=== PATIENT | male | born 1960 | race Caucasian/White ===

== ENCOUNTER → 2016-12-06 | Outpatient (CLI) | payer OTHER | LOC: FIMAGING 14:08 | PROVIDERS: ATTEND Surgery | DX: M77.31 Calcaneal spur, right foot (principal) ==

== ENCOUNTER 2016-12-07 05:21 | Inpatient (IN) | payer OTHER ==
--- NOTE | 2016-12-07 05:46 | CPEKG ---
Heart Rate: 70 RR Interval: 857 P-R Interval: 172 QRSD Interval: 88 QT Interval: 440 QTC Interval: 475 P [place]: 57 QRS [place]: 16 T Wave [place]: 52 EKG Severity - BORDERLINE ECG - EKG Impression: SINUS RHYTHM EKG Impression: BORDERLINE R WAVE PROGRESSION, ANTERIOR LEADS Electronically Signed By: Franco Han 07-Dec-2016 22:06:03
[2016-12-07 05:48] LABS: % IMMATURE GRANULYOCYTES 1.2 % (0.0-1.1); ABSOLUTE IMMATURE GRANULOCYTES 0.09 10^3/uL (0.00-0.10); ADD DIFF? NO; ADD MORPH? NO; ADD SCAN? NO; ATYPICAL LYMPHOCYTE FLAG 10 (0-99); FRAGMENT RBC FLAG 0 (0-99); HEMATOCRIT 39.4 % (40.0-51.0); HEMOGLOBIN 14.7 g/dL (13.7-17.5); LEFT SHIFT FLG 0 (0-99); LIPEMIA HEMOLYSIS FLAG 90 (0-99); MEAN CELL HEMOGLOBIN 31.4 pg (27.9-34.1); MEAN CELL HEMOGLOBIN CONCENTR. 37.3 g/dL (32.4-36.7); MEAN CELL VOLUME 84.2 fL (81.5-99.8); MEAN PLATELET VOLUME 9.7 fL (8.7-11.7); PLATELET CLUMPS FLAG 0 (0-99); PLATELET COUNT 232 10^3/uL (150-400); RED BLOOD CELL COUNT 4.68 10^6/uL (4.40-6.38); RED CELL DISTRIBUTION WIDTH 11.9 % (11.5-15.2)
--- NOTE | 2016-12-07 05:59 | EDPHY ---
H & P - Personal History Current Tetanus/Diphtheria Vaccine: No - Medical/Surgical History Hx Asthma: No Hx Chronic Respiratory Disease: No Hx Diabetes: No Hx Cardiac Disease: No Hx Renal Disease: No Hx Cirrhosis: No Hx Alcoholism: No Hx HIV/AIDS: No Hx Splenectomy or Spleen Trauma: No Other PMH: HTN/IRRITABLE BOWEL/BACK PAIN. SX: LEFT KNEE, SINUSES, HERNIA - NONE RECENT. - Social History Smoking Status: Former smoker Time Seen by Provider: 12/07/16 05:29 HPI/ROS: Chief complaint: Syncope HPI: 56-year-old male had gotten up to go to the bathroom, was walking back to bed when he had a syncopal episode, falling backwards. Patient believes he struck his left upper back when he found complaining of left upper back pain. Did not have any palpitations or chest pain prior to the event. Has had episodes of syncope in the past. No recent illness. Was seen by Dr. Edmonds for debridement of a foot wound several days ago. No leg pain or swelling. No fevers or chills. No cough. No chest pain or shortness of breath. No nausea or vomiting. ROS: 10 point Review of Systems is negative except as noted in the HPI. Physical exam: Gen: Awake, Alert, No Distress HEENT: Nose: no rhinorrhea Eyes: PERRLA, EOMI Mouth: Moist mucosa Neck: Supple, no JVD Chest: nontender, lungs clear to auscultation Heart: S1, S2 normal, no murmur Abd: Soft, non-tender, no guarding Back: No midline tenderness, there is ecchymoses in his right lumbar region. He has got tenderness below his left scapula. Ext: no edema, non-tender Skin: no rash Neuro: CN II-XII intact, Sensation grossly intact, Strength 5/5 in bilateral upper and lower extremities (Franco Han) Constitutional: Initial Vital Signs Temperature (C) 35.6 C L 12/07/16 05:35 Heart Rate 72 12/07/16 05:35 Respiratory Rate 18 12/07/16 05:35 Blood Pressure 145/83 H 12/07/16 05:35 O2 Sat (%) 95 12/07/16 05:35 O2 Delivery Mode Room Air Allergies/Adverse Reactions: No Known Allergies Allergy (Verified 11/06/13 11:04) Home Medications: Medication Instructions Recorded Losartan Potassium [Cozaar 50 mg 100 mg PO DAILY 11/06/13 (*)] Atenolol [Tenormin 100 mg (*)] 100 mg PO DAILY 09/11/16 Acetaminophen [Tylenol 325mg (*)] 325 mg PO BID@09,13 12/07/16 Medical Decision Making - Diagnostics EKG Interpretation: 0544 sinus rhythm with a rate of [address] or T-wave changes. Normal intervals. (Franco Han) ED Course/Re-evaluation: Patient is very dizzy on standing. Clinically dry. Sodium is low at 122. Syncope is likely secondary to dehydratio. He is unlikely hypovolemic hyponatremia. Will continue to IV hydrate. I have discussed with Dr. Stovall, hospitalist. Will admit to her service for further care. (Franco Han) Other Provider: 8:20 a.m. I was called about an over read. The patient has a very small pneumothorax on the left side and some subcutaneous emphysema. I notified Dr. Stovall who was evaluating the patient. Also consulted Dr. Knutson who will consult. We will keep the patient as a medical admission with a trauma service consultation. (Beni Fine) - Data Points Laboratory Results: Laboratory Results 12/07/16 05:35 12/07/16 05:35 12/07/16 12/07/16 05:35 05:35 WBC 7.49 10^3/uL 10^3/uL (3.80-9.50) RBC 4.68 10^6/uL 10^6/uL (4.40-6.38) Hgb 14.7 g/dL g/dL (13.7-17.5) Hct 39.4 % L % (40.0-51.0) MCV 84.2 fL fL (81.5-99.8) MCH 31.4 pg pg (27.9-34.1) MCHC 37.3 g/dL H g/dL (32.4-36.7) RDW 11.9 % % (11.5-15.2) Plt Count 232 10^3/uL 10^3/uL (150-400) MPV 9.7 fL fL (8.7-11.7) Neut % (Auto) 64.0 % % (39.3-74.2) Lymph % (Auto) 20.7 % % (15.0-45.0) [place] % (Auto) 12.6 % % (4.5-13.0) Eos % (Auto) 1.2 % % (0.6-7.6) Baso % (Auto) 0.3 % % (0.3-1.7) Nucleat RBC Rel Count 0.0 % % (0.0-0.2) Absolute Neuts (auto) 4.80 10^3/uL 10^3/uL (1.70-6.50) Absolute Lymphs (auto) 1.55 10^3/uL 10^3/uL (1.00-3.00) Absolute Monos (auto) 0.94 10^3/uL H 10^3/uL (0.30-0.80) Absolute Eos (auto) 0.09 10^3/uL 10^3/uL (0.03-0.40) Absolute Basos (auto) 0.02 10^3/uL 10^3/uL (0.02-0.10) Absolute Nucleated RBC 0.00 10^3/uL 10^3/uL (0-0.01) Immature Gran % 1.2 % H % (0.0-1.1) Immature Gran # 0.09 10^3/uL 10^3/uL (0.00-0.10) Sodium 122 mEq/L L mEq/L (134-144) Potassium 3.7 mEq/L mEq/L (3.5-5.2) Chloride 83 mEq/L L mEq/L (97-110) Carbon Dioxide 22 mEq/l mEq/l (22-31) Anion Gap 17 mEq/L H mEq/L (8-16) BUN 7 mg/dL mg/dL (7-23) Creatinine 1.1 mg/dL mg/dL (0.7-1.3) Estimated GFR > 60 Glucose 103 mg/dL H mg/dL (70-100) Calcium 9.3 mg/dL mg/dL (8.5-10.4) Troponin I < 0.012 ng/mL ng/mL (0-0.034) Medications Given: Discontinued Medications Sodium Chloride (Ns) 1,000 mls @ 0 mls/hr IV ONCE ONE PRN Reason: Wide Open Stop: 12/07/16 06:37 Last Admin: 12/07/16 06:47 Dose: 1,000 mls Morphine Sulfate (Morphine) 4 mg IVP EDNOW ONE Stop: 12/07/16 06:50 Last Admin: 12/07/16 06:58 Dose: 4 mg Departure - Departure Disposition: [facility] Inpatient Acute Clinical Impression: Syncope, Dehydration, Hyponatremia Condition: Fair
[2016-12-07 06:06] LABS: ANION GAP 17 mEq/L (8-16); CALCIUM 9.3 mg/dL (8.5-10.4); CARBON DIOXIDE 22 mEq/l (22-31); CHLORIDE 83 mEq/L (97-110); CREATININE 1.1 mg/dL (0.7-1.3); GLOMERULAR FILTRATION RATE > 60; GLUCOSE 103 mg/dL (70-100); POTASSIUM 3.7 mEq/L (3.5-5.2); SODIUM 122 mEq/L (134-144)
[2016-12-07 06:17] LABS: TROPONIN I < 0.012 ng/mL (0-0.034)
[2016-12-07] MEDS ORDERED: NS 1,000 ML IV ONE ×2 (06:36→07:59)
[2016-12-07] MEDS ORDERED: ONDANSETRON 4 MG/2 ML VIAL IVP PRN (07:59)
[2016-12-07] MEDS ORDERED: ONDANSETRON DISINTEGRATING 4 MG TAB PO PRN (07:59)
[2016-12-07] MEDS ORDERED: ACETAMINOPHEN 325 MG TAB PO PRN (07:59)
[2016-12-07] MEDS ORDERED: NS 1,000 ML IV SCH (08:00)
--- NOTE | 2016-12-07 08:36 | HOSPPROG ---
Hospitalist Progress Note Assessment/Plan: Syncope - He is orthostatic positive in the ED. No fevers and labs not suggestive of infection or sepsis. He has a h/o renal artery stenosis with stenting in 08/2016, though it seems unlikely this would now cause change in hemodynamics. Suspect volume depletion vs over-treatment with his anti- hypertensives (atenolol and losartan), which are held. Also consider hyponatremia as contributory factor, but wouldn't expect that to cause orthostasis. He is fluid responsive to 1L NS. Will repeat bolus. Monitor on telemetry to ensure no arrhythmia. Consider echocardiogram and carotid evaluation if not improving with IVF's and holding anti-hypertensives. Initial trop negative, will repeat. He denies CP. Will also check AM cortisol to r/o adrenal insufficiency. Hyponatremia - Unclear etiology. Check urine studies. He is receiving NS. Will check a serum Na at 1200 to ensure not overcorrecting too rapidly.\ Pneumothorax - Sustained from fall. No hypoxemia. ED to notify surgery, will likely follow with serial CXR. Will give high flow O2 to see if this helps re- expand. Head injury secondary to syncope - pt has posterior head pain. Will check head CT. Hypertension - he is hypotensive and orthostatic. Hold BB and ARB. H/O renal artery stenosis - s/p renal artery stent. Apparently his BP did not improve immediately following this. Full code Dispo - observation Objective: Vital Signs Temp Pulse Resp BP Pulse Ox 36.7 C 73 16 91/58 L 95 12/07/16 07:03 12/07/16 07:03 12/07/16 07:03 12/07/16 07:03 12/07/16 07:03 ICD10 Worksheet Patient Problems: Problems Problem Status Onset Dehydration Acute Hyponatremia Acute Syncope Acute
--- NOTE | 2016-12-07 09:03 | PDGENHP ---
History and Physical - Chief Complaint syncope - History of Present Illness 56 yo male with h/o hypertension, renal artery stenosis s/p stenting in 08/2016 , and chronic back pain presents to ED after a syncopal event at home. He awoke early this am and after voiding in the bathroom, he passed out. He denies pre-syncope symptoms prior to this. No CP, SOB, palpitations, or dizziness. No fevers or cough. No abdominal pain, flank pain, dysuria, frequency or urgency. His found him down and suspects he hit the toilet on the way down. She checked his BP and his SBP was ~60. He believes he fell onto his left chest and hit his head. He c/o posterior head pain. No N/V or mental status changes. He is self splinting his left chest wall. He denies feeling ill prior to this event and has had normal po intake. In the ED, he is found to be orthostatic and received a 1L NS fluid bolus, to which he is responsive. CXR is performed and he is admitted for further evaluation. History Information - Allergies/Home Medication List Allergies/Adverse Reactions: No Known Allergies Allergy (Verified 11/06/13 11:04) Home Medications: Losartan Potassium [Cozaar 50 mg (*)] 100 mg PO DAILY 11/06/13 [Last Taken 12/06] Atenolol [Tenormin 100 mg (*)] 100 mg PO DAILY 09/11/16 [Last Taken 12/06/16] Acetaminophen [Tylenol 325mg (*)] 325 mg PO BID@09,13 12/07/16 [Last Taken 12/06 13:00] Clotrimazole/Betamethasone Dip [Clotrimazole-Betamethasone Crm] 1 adan TP BID [Last Taken Unknown] I have personally reviewed and updated: family history, medical history, social history, surgical history - Past Medical History hypertension Additional medical history: chronic back pain (takes only tylenol), h/o renal artery stenosis s/p stent 08/2016 - Surgical History Additional surgical history: Left knee surgery, renal artery stent - Family History Positive for: non-pertinent - Social History Smoking Status: Former smoker Additional social history: Lives with his independently. Review of Systems ROS: 10pt was reviewed & negative except for what was stated in HPI & below Physical Exam Temp Pulse Resp BP Pulse Ox 36.7 C 73 16 91/58 L 95 12/07/16 07:03 12/07/16 07:03 12/07/16 07:03 12/07/16 07:03 12/07/16 07:03 Constitutional: no apparent distress Eyes: PERRL Ears, Nose, Mouth, Throat: moist mucous membranes Cardiovascular: regular rate and rhythym, no murmur, rub, or gallop Respiratory: no respiratory distress, clear to auscultation, other (+left chest wall tenderness over anterior ribs 5-7) Gastrointestinal: normoactive bowel sounds, soft, non-tender abdomen Skin: warm Musculoskeletal: full muscle strength Neurologic: AAOx3 Psychiatric: interacting appropriately Lab Data & Imaging Review 12/07/16 05:35 12/07/16 05:35 WBC 7.49 10^3/uL (3.80-9.50) 12/07/16 05:35 RBC 4.68 10^6/uL (4.40-6.38) 12/07/16 05:35 Hgb 14.7 g/dL (13.7-17.5) 12/07/16 05:35 Hct 39.4 % (40.0-51.0) L 12/07/16 05:35 MCV 84.2 fL (81.5-99.8) 12/07/16 05:35 MCH 31.4 pg (27.9-34.1) 12/07/16 05:35 MCHC 37.3 g/dL (32.4-36.7) H 12/07/16 05:35 RDW 11.9 % (11.5-15.2) 12/07/16 05:35 Plt Count 232 10^3/uL (150-400) 12/07/16 05:35 MPV 9.7 fL (8.7-11.7) 12/07/16 05:35 Neut % (Auto) 64.0 % (39.3-74.2) 12/07/16 05:35 Lymph % (Auto) 20.7 % (15.0-45.0) 12/07/16 05:35 [place] % (Auto) 12.6 % (4.5-13.0) 12/07/16 05:35 Eos % (Auto) 1.2 % (0.6-7.6) 12/07/16 05:35 Baso % (Auto) 0.3 % (0.3-1.7) 12/07/16 05:35 Nucleat RBC Rel Count 0.0 % (0.0-0.2) 12/07/16 05:35 Absolute Neuts (auto) 4.80 10^3/uL (1.70-6.50) 12/07/16 05:35 Absolute Lymphs (auto) 1.55 10^3/uL (1.00-3.00) 12/07/16 05:35 Absolute Monos (auto) 0.94 10^3/uL (0.30-0.80) H 12/07/16 05:35 Absolute Eos (auto) 0.09 10^3/uL (0.03-0.40) 12/07/16 05:35 Absolute Basos (auto) 0.02 10^3/uL (0.02-0.10) 12/07/16 05:35 Absolute Nucleated RBC 0.00 10^3/uL (0-0.01) 12/07/16 05:35 Immature Gran % 1.2 % (0.0-1.1) H 12/07/16 05:35 Immature Gran # 0.09 10^3/uL (0.00-0.10) 12/07/16 05:35 Sodium 122 mEq/L (134-144) L 12/07/16 05:35 Potassium 3.7 mEq/L (3.5-5.2) 12/07/16 05:35 Chloride 83 mEq/L (97-110) L 12/07/16 05:35 Carbon Dioxide 22 mEq/l (22-31) 12/07/16 05:35 Anion Gap 17 mEq/L (8-16) H 12/07/16 05:35 BUN 7 mg/dL (7-23) 12/07/16 05:35 Creatinine 1.1 mg/dL (0.7-1.3) 12/07/16 05:35 Estimated GFR > 60 12/07/16 05:35 Glucose 103 mg/dL (70-100) H 12/07/16 05:35 Calcium 9.3 mg/dL (8.5-10.4) 12/07/16 05:35 Troponin I < 0.012 ng/mL (0-0.034) 12/07/16 05:35 Assessment & Plan Assessment: Syncope - He is orthostatic positive in the ED. No fevers and labs not suggestive of infection or sepsis. He has a h/o renal artery stenosis with stenting in 08/2016, though it seems unlikely this would now cause change in hemodynamics. Suspect volume depletion vs over-treatment with his anti- hypertensives (atenolol and losartan), which are held. Also consider hyponatremia as contributory factor, but wouldn't expect that to cause orthostasis. He is fluid responsive to 1L NS. Will repeat bolus. Monitor on telemetry to ensure no arrhythmia. Consider echocardiogram and carotid evaluation if not improving with IVF's and holding anti-hypertensives. Initial trop negative, will repeat. He denies CP. Will also check AM cortisol to r/o adrenal insufficiency. Hyponatremia - Suspect hypovolemic. Check urine studies. He is receiving NS. Will repeat serum Na at 1100 to ensure not overcorrecting too rapidly. Pneumothorax - Sustained from fall. No hypoxemia. ED to notify surgery, will likely follow with serial CXR. Will give high flow O2 to see if this helps re- expand. Suspected rib fracture - pain control, PT/OT. Head injury secondary to syncope - pt has posterior head pain. Will check head CT. Hypertension - he is hypotensive and orthostatic. Hold BB and ARB. H/O renal artery stenosis - s/p renal artery stent. Apparently his BP did not improve immediately following this. Full code Dispo - observation
[2016-12-07] MEDS ORDERED: oxyCODONE IR 5 MG TAB PO PRN (09:08)
[2016-12-07] MEDS ORDERED: HYDROmorphONE/DILAUDID 1 MG/ML SYR IVP PRN (09:16)
[2016-12-07] MEDS ORDERED: OXYCODONE/APAP 5/325 TAB ONE (09:22)
[2016-12-07] MEDS: OXYCODONE/APAP 5/325 TAB PO PRN ×3 (09:26→23:50)
[2016-12-07 11:34] LABS: SODIUM 118 mEq/L (134-144)
[2016-12-07 11:47] LABS: TROPONIN I < 0.012 ng/mL (0-0.034)
[2016-12-07] MEDS ORDERED: CYCLOBENZAPRINE 10 MG TAB ONE (12:32)
[2016-12-07] MEDS: SODIUM CL 23.4% 308 MEQ in WATER FOR INJECTION,STERILE 1,000 ML IV SCH (12:40)
[2016-12-07] MEDS: CYCLOBENZAPRINE 10 MG TAB PO SCH ×2 (12:40→21:46)
[2016-12-07] MEDS: IBUPROFEN 600 MG TAB PO PRN (12:40)
--- NOTE | 2016-12-07 14:02 | GCON ---
[f rep st] CONSULTATION DATE OF CONSULTATION: 12/07/2016 CHIEF COMPLAINT: Syncopal episode with fall. HISTORY OF PRESENT ILLNESS: This is a 56-year-old male, who early this morning sustained a fall secondary to a syncopal episode. Per he and his 's report , the patient was ambulating toward the bathroom. The initially heard a small commotion followed by a larger one, and found the patient lying in the bathroom. The patient was amnestic to the event, but at any rate, it appears that the patient remembers feeling lightheaded and passing out. He did fall down, struck his head and had about 20 seconds of loss of consciousness. He was diaphoretic at that time as well. His is a nurse here at the [facility] and she took his blood pressure at home and it was unusually low as the patient usually runs high. She then brought him here by private vehicle. In the emergency department, he was evaluated. He was alert and oriented. His GCS was 14-15. He was a little bit confused but otherwise redirectable. He was protecting his airway. He was breathing appropriately and he had adequate circulation. He was subsequently evaluated by the emergency department staff. As part of the workup, the patient received a noncontrast CT scan of the head which showed no acute intracranial injury without bleed. He also had a chest x-ray which showed a [id number] left- sided pneumothorax with an associated likely lateral 5th rib fracture without any other concerning findings. On my evaluation, the patient is alert, oriented , complaining of head pain and right lower back pain, with the most severe being left-sided chest pain, worse with palpation and breaths. The pain at its worst intensity is 8-9 out of 10 without radiation and is described as sharp. The patient denies having any other chills. He currently knows where he is. Denies having any other symptomatology. Denies being lightheaded at this point in time. PAST MEDICAL HISTORY: Hypertension, chronic back pain, history of renal artery stenosis. PAST SURGICAL HISTORY: Left knee arthroscopic surgery, renal artery stent, laparoscopic Lane, and left foot debridement. SOCIAL HISTORY: Former smoker. Lives with his independently. REVIEW OF SYSTEMS: A full 10-point review was performed and unless explicitly stated above is otherwise negative. CURRENT MEDICATIONS: Include losartan, atenolol, acetaminophen, clotrimazole. ALLERGIES: None. PHYSICAL EXAMINATION: VITAL SIGNS: Blood pressure 115/82, heart rate 64, and he is 94% on room air, temperature is 36.8. GENERAL: He is alert and oriented , in no acute distress. He is completely neurologically intact without any focal deficits. HEENT: Pupils are equal, round, and reactive to light and accommodation. There is no scleral icterus or nystagmus. NECK: Soft, supple, without any palpable deformities or pain in the midline C-spine. CHEST: His chest is tender to palpation on the left side without crepitus. His lungs are clear, although he has poor inspiratory effort. ABDOMEN: Soft, nondistended, nontender with scars consistent with his previous surgical history. His pelvis is stable to both AP and lateral compression. EXTREMITIES: Warm without deformity or injury and well perfused. LABS: Sodium on initial consultation was 122. This has now dropped to 118. His glucose is elevated at 103. Chest x-ray shows likely 5th lateral rib fracture with an associated pneumothorax. Followup x-ray 6 hours later shows stable pneumothorax. CT head was negative for any acute bleed and/or injury. ASSESSMENT/PLAN: A 56-year-old male status post syncopal fall with head injury and loss of consciousness. Given the unprovoked syncopal episode, the patient will be admitted to the medical service for further evaluation and treatment of his hyponatremia. I have subsequently ordered serial chest x-rays as the patient is not symptomatic from his small to moderate pneumothorax on the left. I anticipate that as it has not enlarged over the initial 6 hours that it will continue to be stable to regress and likely resolve without tube thoracostomy placement. However, I will repeat imaging later this evening to confirm that, and if the patient should become symptomatic, I have already discussed with him that he will more than likely need a chest tube thoracostomy placement to that side. We will continue to monitor. I see no other obvious signs of injury, but we will obtain a tertiary exam 24 hours after initial consultation to ensure that he has no evolving injury. /[id number]/MODL MTDD
--- NOTE | 2016-12-07 20:41 | HOSPPROG ---
Hospitalist Progress Note Assessment/Plan: The patient this afternoon feels better overall with less pain. However he remains somewhat encephalopathic. No seizures or vomitng He and tell me he has had no emesis, diarrhea, poyluria or polydypsia, diuretic or laxative use. He has had a decrease in Na despite IV saline. Appears near euvolemic. (I am unable at this point to get a great feel for what his volume status was before getting saline infusions in the ER. I have started 1.8% hypertonic saline. Will continue to follow his Na closely. I have also ordered serum osmols, but I doubt he has a pseudohyponatremia or excess of some nonmeasured osmole. His urine studies most consistant with siadh with simultaneous low Na stores. Unless it is all acute and resulting from his head injury, I do not as of yet see a cause for siadh. He is not on antidepressant or narcotic or other medication that would cause low Na. Objective: Vital Signs Temp Pulse Resp BP Pulse Ox 37.0 C 95 16 118/69 97 12/07/16 19:19 12/07/16 19:19 12/07/16 19:19 12/07/16 19:19 12/07/16 19:19 Laboratory Results 12/07/16 17:40 12/06/16 12/07/16 12/08/16 06:59 06:59 06:59 Intake Total 3317 Balance 3317 ICD10 Worksheet Patient Problems: Problems Problem Status Onset Dehydration Acute Hyponatremia Acute Syncope Acute
[2016-12-07] MEDS: CLOTRIMAZOLE/BETAMET DIPROP 15 GM CRTUBE TP SCH (21:00)
[2016-12-07 21:42] LABS: ANION GAP 8 mEq/L (8-16); CALCIUM 8.5 mg/dL (8.5-10.4); CARBON DIOXIDE 24 mEq/l (22-31); CHLORIDE 90 mEq/L (97-110); CREATININE 1.1 mg/dL (0.7-1.3); GLOMERULAR FILTRATION RATE > 60; GLUCOSE 101 mg/dL (70-100); POTASSIUM 4.2 mEq/L (3.5-5.2); SODIUM 122 mEq/L (134-144)
[2016-12-08] MEDS: IBUPROFEN 600 MG TAB PO PRN ×3 (03:20→17:05)
[2016-12-08] MEDS: SODIUM CL 23.4% 308 MEQ in WATER FOR INJECTION,STERILE 1,000 ML IV SCH (05:00)
[2016-12-08] MEDS: OXYCODONE/APAP 5/325 TAB PO PRN ×4 (05:02→22:24)
[2016-12-08 05:51] LABS: ANION GAP 7 mEq/L (8-16); CALCIUM 8.8 mg/dL (8.5-10.4); CARBON DIOXIDE 24 mEq/l (22-31); CHLORIDE 96 mEq/L (97-110); CREATININE 1.1 mg/dL (0.7-1.3); GLOMERULAR FILTRATION RATE > 60; GLUCOSE 106 mg/dL (70-100); POTASSIUM 4.4 mEq/L (3.5-5.2); SODIUM 127 mEq/L (134-144)
[2016-12-08] MEDS: ATENOLOL 50 MG TAB PO SCH (09:35)
[2016-12-08] MEDS: CYCLOBENZAPRINE 10 MG TAB PO SCH ×3 (09:35→21:52)
[2016-12-08] MEDS: CLOTRIMAZOLE/BETAMET DIPROP 15 GM CRTUBE TP SCH ×2 (09:36→20:22)
[2016-12-08 11:27] LABS: ANION GAP 8 mEq/L (8-16); CALCIUM 8.8 mg/dL (8.5-10.4); CARBON DIOXIDE 20 mEq/l (22-31); CHLORIDE 101 mEq/L (97-110); CREATININE 1.2 mg/dL (0.7-1.3); GLOMERULAR FILTRATION RATE > 60; GLUCOSE 106 mg/dL (70-100); POTASSIUM 4.5 mEq/L (3.5-5.2); SODIUM 129 mEq/L (134-144)
--- NOTE | 2016-12-08 11:45 | SOAPPROG ---
SOAP Progress Note Assessment/Plan: Assessment/Plan: 56 yo man who presented with syncope of unknown etiology Work up has revealed hyponatremia and orthostatic hypotension Chest pain showed left anterior non displaced rib fx and 30% ptx - no hypoxia ( 97% sats room air) and no increase repiratory effort Conservative treatment has shown interval decrease in the size to 15-20% RRR CTA Abd soft nt/nd No edema Non focal neuro exam CXR reviewed. pneumothorax resolving spontaneously Repeat CXR in am if stable of resolving no intervention recommended oxygen 2L NC to allow faster resolution of pxt 12/08/16 11:41 Objective: Vital Signs Temp Pulse Resp BP Pulse Ox 37.0 C 75 13 113/59 L 97 12/08/16 07:45 12/08/16 07:45 12/08/16 07:45 12/08/16 07:45 12/08/16 07:45 Laboratory Results 12/08/16 10:37 12/07/16 12/08/16 12/09/16 05:59 05:59 05:59 Intake Total 4872 Output Total 1125 Balance 3747 ICD10 Worksheet Patient Problems: Problems Problem Status Onset Dehydration Acute Hyponatremia Acute Syncope Acute
--- NOTE | 2016-12-08 12:04 | HOSPPROG ---
Hospitalist Progress Note Assessment/Plan: DIAGNOSES: # Syncope, most likely vagal but some question of potential for seizure -Patient did have a metabolic acidosis at the time of admission # Hyponatremia, near euvolemic -Lab so far consistent with SIADH, reason for SIADH unknown # Left pneumothorax with rib fractures -So far pneumothorax improving spontaneously, chest tube not currently indicated # Chronic hypertension ( not on any diuretics ) # History of renal artery stenosis status post recent angioplasty; blood pressure is not improved since his procedure # chronic alcohol abuse with 6-8 beers daily PLANS: - at this point will liberalize his fluid intake somewhat and have stopped his hypertonic saline -Continue follow his sodium levels closely -EEG pending -Increase activity -Continue follow serial chest x-rays with left pneumothorax -will add thiamine and watch closely for any potential signs of withdrawal SUBJECTIVE: He has some left chest soreness from his rib fractures, minimal headache, no other discomforts No nausea Eating okay Less disoriented than last night OBJECTIVE Vitals reviewed: blood pressure is better today so far, otherwise normal [employer], my review: all sinus rhythm so far Exam: alert oriented skin warm dry color ok resps not labored lungs clear BSs heart regular abd soft nondistended nontender, bowel sounds present limbs warm, no edema iv site ok Objective: Vital Signs Temp Pulse Resp BP Pulse Ox 36.8 C 64 12 113/71 99 12/08/16 11:54 12/08/16 11:54 12/08/16 11:54 12/08/16 11:54 12/08/16 11:54 Laboratory Results 12/08/16 10:37 12/07/16 12/08/16 12/09/16 06:59 06:59 06:59 Intake Total 4872 Output Total 1125 Balance 3747 ICD10 Worksheet Patient Problems: Problems Problem Status Onset Dehydration Acute Hyponatremia Acute Syncope Acute
--- NOTE | 2016-12-08 13:11 | GCON ---
[f rep st] CONSULTATION INTENSIVE CONSULTATION REASON FOR ADMISSION: Hyponatremia, syncopal episode. HISTORY OF PRESENT ILLNESS: The patient is a very pleasant 56-year-old white male with a past medic al history including hypertension, renal artery stenosis with stenting, chronic back pain. Apparent ly on the day of admission, he voided early in the morning and then lost consciousness. Apparently this occurred fairly suddenly. He was seen in the emergency room and given aggressive hydration. Funmi verma currently complains of left chest pain from a rib fracture when he fell. Currently, he is resting comfortably. He has had vasovagal episodes in the past causing loss of consciousness but none rece ntly. PAST MEDICAL HISTORY: Again, significant for chronic back pain, renal artery stenosis status post s tenting, hypertension. ALLERGIES: No known medications. SOCIAL HISTORY: Previous smoker, none for many years. No significant alcohol use. He lives with h is and has excellent family support. PAST SURGICAL HISTORY: He has had left knee surgery and, again, a renal artery stent. PHYSICAL EXAM: VITAL SIGNS: Blood pressure is 113/71, pulse 64, respirations 12, temperature 36.8, oxygen saturation 99% on 2 L. GENERAL: He is a well-developed, well-nourished 56-year-old male wh o is resting comfortably, in no acute distress. HEENT: Eyes: STEVE. EOMI. Throat shows no erythe ma or tonsillar hypertrophy. NECK: Supple. No cervical adenopathy. HEART: Regular rate and rhyt hm without murmurs, rubs, or gallops. LUNGS: Diminished breath sounds but no wheeze. ABDOMEN: So ft, nontender. Bowel sounds are present in all 4 quadrants. EXTREMITIES: No clubbing, cyanosis, o r edema. LABORATORIES: White count 7.4, hemoglobin of 14, hematocrit 39, platelet count 232. Initial chemis tries on presentation: Sodium 122, potassium 4.2, chloride 90, CO2 24, BUN 16, creatinine 1.1, gluc ose 101. Most recent chemistries: Sodium is up to 129, potassium 4.5, chloride 101, CO2 is 20, BUN 17, creatinine 1.2, glucose 106. A chest x-ray shows a left pneumothorax, which is small. There is a lateral left rib fracture. IMPRESSION: 1. Syncopal episode, likely secondary to his hyponatremia end and hypovolemia. 2. Hyponatremia, query whether this may be SIADH. 3. Status post fall. 4. Left-sided rib fracture. 5. Left-sided pneumothorax, too small to require a chest tube at this time. RECOMMENDATIONS: 1. Agree with continued hydration. 2. Monitor sodium frequently. 3. DVT and PE prophylaxis. 4. Stress ulcer prophylaxis. 5. Frequent chest x-rays. /[id number]/MODL
[2016-12-08] MEDS ORDERED: MAGNESIUM HYDROXIDE 30 ML UDCUP PO PRN (14:58)
[2016-12-08] MEDS ORDERED: POLYETHYLENE GLYCOL 3350 17 GM PKT PO PRN (14:58)
[2016-12-08] MEDS ORDERED: BISACODYL 10 MG SUPP PR PRN (14:58)
[2016-12-08] MEDS ORDERED: LACTULOSE 20 GM/30 ML UDCUP PO PRN (14:58)
[2016-12-08 19:04] LABS: ANION GAP 10 mEq/L (8-16); CALCIUM 9.2 mg/dL (8.5-10.4); CARBON DIOXIDE 20 mEq/l (22-31); CHLORIDE 97 mEq/L (97-110); CREATININE 1.1 mg/dL (0.7-1.3); GLOMERULAR FILTRATION RATE > 60; GLUCOSE 217 mg/dL (70-100); POTASSIUM 4.3 mEq/L (3.5-5.2); SODIUM 127 mEq/L (134-144)
[2016-12-08] MEDS: THIAMINE HCL 100 MG TAB PO SCH (20:22)
[2016-12-08] MEDS: SENNOSIDES/DOCUSATE SODIUM TAB PO SCH (20:22)
[2016-12-09 00:44] LABS: ANION GAP 8 mEq/L (8-16); CALCIUM 8.9 mg/dL (8.5-10.4); CARBON DIOXIDE 22 mEq/l (22-31); CHLORIDE 100 mEq/L (97-110); GLOMERULAR FILTRATION RATE > 60; GLUCOSE 107 mg/dL (70-100); POTASSIUM 4.4 mEq/L (3.5-5.2); SODIUM 130 mEq/L (134-144)
[2016-12-09] MEDS: OXYCODONE/APAP 5/325 TAB PO PRN (04:58)
[2016-12-09 05:03] VITALS: O2SAT 98
[2016-12-09 05:58] LABS: ANION GAP 9 mEq/L (8-16); CALCIUM 9.1 mg/dL (8.5-10.4); CARBON DIOXIDE 22 mEq/l (22-31); CHLORIDE 99 mEq/L (97-110); CREATININE 0.9 mg/dL (0.7-1.3); GLOMERULAR FILTRATION RATE > 60; GLUCOSE 99 mg/dL (70-100); SODIUM 130 mEq/L (134-144)
[2016-12-09 07:59] VITALS: RESP 17; TEMP 98.8
--- NOTE | 2016-12-09 08:52 | SOAPPROG ---
SOAP Progress Note Assessment/Plan: Assessment: s/p fall ? syncope blunt chest trauma/rib fractures/ left pneumothorax Plan: check CXR/continue supplemental O2 12/09/16 08:52 Subjective: awake/resting comfortably-c/o left posterior chest pain Objective: Vital Signs Temp Pulse Resp BP Pulse Ox 37.1 C 93 17 96/79 L 98 12/09/16 07:58 12/09/16 07:58 12/09/16 07:58 12/09/16 07:58 12/09/16 07:58 Laboratory Results 12/09/16 05:21 12/08/16 12/09/16 12/10/16 05:59 05:59 05:59 Intake Total 4872 1450 Output Total 1125 1175 Balance 3747 275 Physical Exam - Physical Exam General Appearance: mild distress Respiratory: normal breath sounds, decreased breath sounds (left apex) Cardiac/Chest: regular rate, rhythm ICD10 Worksheet Patient Problems: Problems Problem Status Onset Dehydration Acute Hyponatremia Acute Syncope Acute
--- NOTE | 2016-12-09 09:30 | PDINTPN ---
Cold Roll Catcher Progress Note Assessment/Plan: Assessment: * Syncope * Hyponatremia-improved * Htn * H/O renal artery stenosis Plan: Transfer to med surg [facility] Subjective: Comfortable. Objective: Vital Signs Temp Pulse Resp BP Pulse Ox 37.1 C 93 17 96/79 L 98 12/09/16 07:58 12/09/16 07:58 12/09/16 07:58 12/09/16 07:58 12/09/16 07:58 Laboratory Results 12/09/16 05:21 12/08/16 12/09/16 12/10/16 05:59 05:59 05:59 Intake Total 4872 1450 Output Total 1125 1175 Balance 3747 275 Physical Exam - Physical Exam General Appearance: alert, no apparent distress EENT: PERRL/EOMI, normal ENT inspection, pharynx normal, TMs normal Neck: non-tender, full range of motion, supple, normal inspection Respiratory: chest non-tender, lungs clear, normal breath sounds Cardiac/Chest: normal peripheral pulses, regular rate, rhythm Peripheral Pulses: 2+: carotid (R), carotid (L), femoral (R), femoral (L), dorsalis-pedis (R), dorsalis-pedis (L) Abdomen: normal bowel sounds, non-tender, soft Male Genitalia: deferred Rectal: deferred Extremities: normal range of motion, non-tender, normal inspection, normal capillary refill Neuro/Psych: no motor/sensory deficits, alert, normal mood/affect, oriented x 3 ICD10 Worksheet Patient Problems: Problems Problem Status Onset Dehydration Acute Hyponatremia Acute Syncope Acute
[2016-12-09] MEDS: SENNOSIDES/DOCUSATE SODIUM TAB PO SCH (09:40)
[2016-12-09] MEDS: THIAMINE HCL 100 MG TAB PO SCH (09:40)
[2016-12-09] MEDS: CYCLOBENZAPRINE 10 MG TAB PO SCH (09:40)
[2016-12-09 09:41] VITALS: BP 136/65; PULSE 102
[2016-12-09] MEDS: ATENOLOL 50 MG TAB PO SCH (09:41)
[2016-12-09] MEDS: CLOTRIMAZOLE/BETAMET DIPROP 15 GM CRTUBE TP SCH (09:41)
--- NOTE | 2016-12-09 13:00 | SOAPPROG ---
Downtime Inpatient MD Late Entry SOAP Note: repeat CXR reviewed/not significantly different from yesterday's film-no hemothorax Imp: stable for discharge from surgical viewpoint discussed follow up CXR in 48 hours no return to work or sports no air travel Leilani Castro MD, FACS
--- NOTE | 2016-12-09 20:05 | GDS ---
[f rep st] DISCHARGE SUMMARY DISCHARGE DIAGNOSES: 1. Syncope of unclear etiology. Possibly due to hyponatremia versus vasovagal syncope versus less likely seizure. 2. Euvolemic hyponatremia, most likely due to water intoxication. 3. Traumatic left pneumothorax and rib fractures. 4. Chronic hypertension. 5. History of renal artery stenosis. CONSULTANTS: Trauma surgery. HOSPITAL COURSE AND STAY BY PROBLEM: Syncope and hyponatremia: [facility] the severity of his hyponatremia which nadired at 117 on the afternoon of 16. The patient was placed on a fluid restriction. On day of discharge, his serum sodium is up to 130. The patient was initially thought to have SIADH. However, his urine sodium was actually low at 24 m Eq/L, which is not consistent with the diagnosis of SIADH. Upon further questioning, it appears polly t the patient drinks upwards of a gallon of water per day plus many beers. He reports a normal diet . Once again, the patient was noted to have a pneumothorax during this hospital stay. A chest x-ray d one on day of discharge, revealed a small to moderate left apical pneumothorax. Prior to discharge, I discussed the case with Dr. Castro, who thought that this pneumothorax was stable and did not requi re further treatment with chest tube placement. He should have a followup chest x-ray in 48 hours. He should not return to work or sports, and shou ld not travel by air. PHYSICAL EXAMINATION: VITAL SIGNS: On day of discharge, blood pressure 136/65, pulse 93, respirato ry rate 17, O2 saturation 98% on 2 L. Temperature afebrile. GENERAL: No acute distress. HEART: S1, S2. LUNGS: Clear. ABDOMEN: Soft. EXTREMITIES: No edema. PENDING LABS AND STUDIES: An EEG was done during this hospital stay which has not yet been read. DISCHARGE MEDICATIONS: Please refer to discharge medication reconciliation in [facility] for details. DISCHARGE INSTRUCTIONS: The patient was discharged from the hospital where he should have a repeat chest x-ray done in 48 hours. He should have followup of the EEG. He was placed on a 2 L fluid res triction. He was instructed to cut down on his alcohol use. He should follow up with his primary c are provider early next week for routine hospital followup and also to continue to monitor his serum sodium level, which should be done next week. If he continues to have problems with hyponatremia, it would be reasonable for him to follow up with a [facility] splitter. /[id number]/MODL
--- NOTE | 2016-12-11 13:45 | CPEEG ---
[f rep st] ELECTROENCEPHALOGRAM ELECTROENCEPHALOGRAM. DATE OF STUDY: 12/08/2016 DATE OF INTERPRETATION: 12/11/2016. INTERPRETATION: Normal EEG during wakefulness and partial sleep. There were no potentially epilept ogenic abnormalities present during recording. REPORT: This EEG contains 9 Hz alpha activity to the posterior head regions. There was no abnormal activation at rest. The patient became drowsy and fell into light sleep during the study. There w as no abnormal activation during drowsiness, light sleep, or during times of arousal. /[id number]/MODL
== END 2016-12-09 13:14 | disposition home or self-care (01) | DRG 312 ==
LOC: OBSVTOIN 11:59 → F2N 16:54
PROVIDERS: ADMIT Hospitalist; ATTEND Family Medicine
DX: R55 Syncope and collapse (principal); S06.9X9A Unspecified intracranial injury with loss of consciousness of unspecified duration, initial encounter; S22.42XA Multiple fractures of ribs, left side, initial encounter for closed fracture; S27.0XXA Traumatic pneumothorax, initial encounter; E22.2 Syndrome of inappropriate secretion of antidiuretic hormone; E86.0 Dehydration; I10 Essential (primary) hypertension; F10.10 Alcohol abuse, uncomplicated; W19.XXXA Unspecified fall, initial encounter; Y92.012 Bathroom of single-family (private) house as the place of occurrence of the external cause
CPT/HCPCS: 96374

== ENCOUNTER → 2016-12-11 | Outpatient (CLI) | payer OTHER | LOC: CIMAGING 13:05 | PROVIDERS: ATTEND Surgery | DX: S27.0XXD Traumatic pneumothorax, subsequent encounter (principal); S22.42XD Multiple fractures of ribs, left side, subsequent encounter for fracture with routine healing | CPT/HCPCS: 71020-PO ==

== ENCOUNTER → 2016-12-18 | Outpatient (CLI) | payer OTHER | LOC: CIMAGING 10:01 | PROVIDERS: ATTEND Surgery | DX: J93.9 Pneumothorax, unspecified (principal) | CPT/HCPCS: 71020-PO ==

== ENCOUNTER → 2016-12-25 | Outpatient (CLI) | payer OTHER | LOC: BRMIMAGING 12:55 | PROVIDERS: ATTEND Physician Assistant Medical | DX: I25.10 Atherosclerotic heart disease of native coronary artery without angina pectoris (principal); R55 Syncope and collapse | CPT/HCPCS: 93880-PO ==

== ENCOUNTER → 2016-12-29 | Outpatient (CLI) | payer OTHER ==
[~2016-12-29] MED LIST: IOPAMIDOL (ISOVUE-300) 100 ML BTL IV ONE
== END ==
LOC: FIMAGING 14:44
PROVIDERS: ATTEND Internal Medicine Interventional Cardiology
DX: I65.22 Occlusion and stenosis of left carotid artery (principal); I70.8 Atherosclerosis of other arteries; I10 Essential (primary) hypertension
CPT/HCPCS: Q9967

== ENCOUNTER → 2017-06-04 | Outpatient (CLI) | payer OTHER | LOC: CIMAGING 13:57 | PROVIDERS: ATTEND Internal Medicine Cardiovascular Disease | DX: R91.8 Other nonspecific abnormal finding of lung field (principal); J84.10 Pulmonary fibrosis, unspecified; I10 Essential (primary) hypertension; I25.10 Atherosclerotic heart disease of native coronary artery without angina pectoris; I70.0 Atherosclerosis of aorta; K44.9 Diaphragmatic hernia without obstruction or gangrene | CPT/HCPCS: 71250-PO ==

== ENCOUNTER 2017-09-28 07:08 | Observation (INO) | payer OTHER ==
[2017-09-28] MEDS ORDERED: PANTOPRAZOLE SODIUM 80 MG in NS 100 ML IV ONE ×2 (07:26→07:27)
[2017-09-28] MEDS ORDERED: ONDANSETRON 4 MG/2 ML VIAL IVP ONE (07:26)
[2017-09-28] MEDS ORDERED: FAMOTIDINE 20 MG/NACL 50 ML IV ONE (07:26)
[2017-09-28] MEDS ORDERED: NS 1,000 ML IV ONE (07:26)
[2017-09-28] MEDS ORDERED: OCTREOTIDE ACETATE 50 MCG/ML INJ IVP ONE (07:28)
--- NOTE | 2017-09-28 07:35 | EDPHY ---
H & P Time Seen by Provider: 09/28/17 07:19 HPI/ROS: HPI Lightheaded, dark stool. 57-year-old male by private vehicle. He complains of feeling lightheaded, low on energy, much more lightheaded when he stands up from sitting and he reports dark black stool ongoing for the last 3 days. He has a history of prior duodenal ulcer. Has been managed by [facility] in the past. He reports he had some right upper quadrant pain this morning the abdominal pain at this time. He takes an aspirin daily. No other antiplatelet or anticoagulant medications. Last meal last night. He had episode of black loose stool this morning prior to coming to the emergency department. ROS: Constitutional: No fever, no chills. No weakness. Eyes: No discharge. No changes in vision. ENT: No sore throat. No nasal congestion or rhinorrhea. Respiratory: No cough. No shortness of breath. Cardiac: No chest pain, no palpitations. Gastrointestinal: As above, no vomiting, no diarrhea. Genitourinary: No hematuria. No dysuria or increased frequency with urination. Musculoskeletal: No back pain. No neck pain. No myalgias or arthralgias. Skin: No rashes. Neurological: No headache. No focal weakness or altered sensation. Past medical history: As above. Also includes hypertension, irritable bowel, chronic pain, abdominal hernia. Social history: Nonsmoker. Drinks alcohol socially. He is here with his . He is a nurse at our hospital. Physical Exam: General Appearance: Alert, no distress. He appears pale in color. This patient is responding to questions appropriately and in full sentences. This patient appears well-hydrated and well-nourished. Eyes: Pupils equal and round no pallor or injection. No lid edema, erythema or injection. ENT, Mouth: Mucous membranes are moist. The pharyngeal tissues are unremarkable. No edema or swelling. No asymmetry suggestive of abscess. No erythema or exudates. Respiratory: There are no retractions, lungs are clear to auscultation with good air movement bilaterally. Cardiovascular: Regular rate and rhythm. Tachycardia. No murmur. Gastrointestinal: Abdomen is soft and nontender, no masses, bowel sounds normal. No focal tenderness at McBurney's point. No Mcfadden sign. Rectal exam: Normal tone. Black melenic stool grossly. No bright red blood per rectum. Neurological: Motor sensory function is grossly intact. Cranial nerves are normal. Gait is normal. Skin: Warm and dry, no rashes. Musculoskeletal: Neck is supple and nontender. Extremities are symmetrical. All joints range without pain or impingement. Psychiatric: No agitation. No depression. Database: EKG: EKG time is 8:24 a.m.; EKG shows a narrow complex sinus tachycardia with a ventricular rate of 119. The MI, QRS, QT intervals are within normal limits. There are no ST-T wave changes indicative of ischemic or injury pattern. No evidence of right heart strain. Interpreted by me. Imaging: Procedures: Emergency department course: Vital signs reviewed. Blood pressure is normal. Hardware 50 triage. Temperature 37.4degrees. 2 IVs were placed. He was placed on a home care consultant. He was started on normal saline 1 L to be given over the next hour. He will be typed and screened. He was started on IV Protonix both as a bolus and a drip. He was also given octreotide. 8:30 a.m., patient re-evaluated. He is resting comfortably at this time. Blood pressure currently is 129/93. He has had 1 L of IV normal saline. He will be given an additional 500 cc. Results of his laboratory work and diagnosis discussed with him. Plan for admission reviewed. EKG obtained and reviewed by myself. 8:45 a.m., spoke with hospitalist. Case discussed in detail. Patient accepted for admission to the hospitalist service. 9:00 a.m., spoke with ship ceiler, Dr. Franco Cramer. Case reviewed with him in detail. He will see this patient consultation. Patient admitted to telemetry in improved but guarded condition. Differential Diagnosis: The differential diagnosis on this patient includes but is not limited to bleeding gastric ulcer, duodenal ulcer, lower gastrointestinal bleeding, anemia. Perforated peptic ulcer unlikely. This represents a partial list of diagnoses considered. These considerations are based on history, physical exam , past history, reassessment and diagnostic testing. Smoking Status: Former smoker Constitutional: Initial Vital Signs Temperature (C) 37.4 C 09/28/17 07:10 Heart Rate 150 H 09/28/17 07:10 Respiratory Rate 15 09/28/17 07:10 Blood Pressure 125/99 H 09/28/17 07:10 O2 Sat (%) 98 09/28/17 07:10 O2 Delivery Mode Room Air Allergies/Adverse Reactions: No Known Allergies Allergy (Verified 11/06/13 11:04) Home Medications: Medication Instructions Recorded Acetaminophen [Tylenol 325mg (*)] 650 mg PO TID@,,12/07/16 Albuterol [Proventil Inhaler HFA 1 - 2 puffs IH DAILY PRN 09/28/17 (*)] Aspirin [Aspirin 81mg (*)] 81 mg PO DAILY 09/28/17 Metoprolol Succinate Xr [Toprol Xl 100 mg PO DAILY 09/28/17 100 mg (*)] Rosuvastatin Calcium [Crestor 20mg 20 mg PO DAILY 09/28/17 (*)] amLODIPine BESYLATE [Norvasc 5 mg 5 mg PO DAILY 09/28/17 (*)] Medical Decision Making - Data Points Laboratory Results: Laboratory Results 09/28/17 07:45 09/28/17 07:45 Medications Given: Acetaminophen (Tylenol) 650 mg PO TID@,, [facility] Stop: 03/27/18 11:59 Last Admin: 09/29/17 07:26 Dose: 650 mg Lactated Ringer's (Lr) 1,000 mls @ 125 mls/hr IV CONT [facility] Stop: 03/27/18 11:29 Last Admin: 09/28/17 13:04 Dose: 1,000 mls Ondansetron HCl (Zofran Odt) 4 mg PO Q4HRS PRN PRN Reason: Nausea/Vomiting, Use 1st Stop: 03/27/18 09:07 Last Admin: 09/28/17 09:28 Dose: 4 mg Pantoprazole Sodium (Protonix) 40 mg PO BID [facility] Stop: 03/28/18 08:59 Last Admin: 09/29/17 08:47 Dose: 40 mg Discontinued Medications Sodium Chloride (Ns) 1,000 mls @ 0 mls/hr IV EDNOW ONE; Wide Open PRN Reason: Protocol Stop: 09/28/17 07:27 Last Admin: 09/28/17 07:30 Dose: 1,000 mls Famotidine/Sodium Chloride (Pepcid 20 Mg (Premix)) 50 mls @ 200 mls/hr IV EDNOW ONE Stop: 09/28/17 07:40 Last Admin: 09/28/17 07:57 Dose: 50 mls Octreotide Acetate 500 mcg/ (Sodium Chloride) 51 mls @ 5 mls/hr IV CONT [facility] Stop: 03/27/18 07:29 Last Admin: 09/28/17 11:30 Dose: 51 mls Pantoprazole Sodium 80 mg/ (Sodium Chloride) 100 mls @ 200 mls/hr IV ONCE ONE Stop: 09/28/17 07:56 Last Admin: 09/28/17 07:59 Dose: 100 mls Pantoprazole Sodium 80 mg/ (Sodium Chloride) 100 mls @ 10 mls/hr IV Q10H ONE Stop: 09/28/17 17:25 Last Admin: 09/28/17 11:30 Dose: 100 mls Sodium Chloride (Ns) 500 mls @ 1,000 mls/hr IV EDNOW ONE PRN Reason: Protocol Stop: 09/28/17 08:58 Last Admin: 09/28/17 09:27 Dose: 500 mls Pantoprazole Sodium 80 mg/ (Sodium Chloride) 100 mls @ 10 mls/hr IV Q10H [facility]ANTHA Stop: 03/27/18 16:59 Last Admin: 09/29/17 05:13 Dose: 100 mls Octreotide Acetate (Octreotide Acetate) 50 mcg IVP ONCE ONE Stop: 09/28/17 07:29 Last Admin: 09/28/17 08:00 Dose: 50 mcg Ondansetron HCl (Zofran) 4 mg IVP EDNOW ONE Stop: 09/28/17 07:27 Last Admin: 09/28/17 08:06 Dose: Not Given Departure - Departure Disposition: [facility] Acute Clinical Impression: Gastrointestinal bleeding Condition: Fair
[2017-09-28 07:58] LABS: % IMMATURE GRANULYOCYTES 0.8 % (0.0-1.1); ABSOLUTE IMMATURE GRANULOCYTES 0.07 10^3/uL (0.00-0.10); ADD DIFF? NO; ADD MORPH? NO; ADD SCAN? NO; ATYPICAL LYMPHOCYTE FLAG 0 (0-99); FRAGMENT RBC FLAG 0 (0-99); HEMATOCRIT 27.3 % (40.0-51.0); HEMOGLOBIN 9.8 g/dL (13.7-17.5); LEFT SHIFT FLG 0 (0-99); LIPEMIA HEMOLYSIS FLAG 90 (0-99); MEAN CELL HEMOGLOBIN 31.8 pg (27.9-34.1); MEAN CELL HEMOGLOBIN CONCENTR. 35.9 g/dL (32.4-36.7); MEAN CELL VOLUME 88.6 fL (81.5-99.8); MEAN PLATELET VOLUME 9.5 fL (8.7-11.7); PLATELET CLUMPS FLAG 0 (0-99); PLATELET COUNT 184 10^3/uL (150-400); RED BLOOD CELL COUNT 3.08 10^6/uL (4.40-6.38); RED CELL DISTRIBUTION WIDTH 13.2 % (11.5-15.2)
[2017-09-28 08:08] LABS: APTT 22.7 SEC (23.0-38.0); INR 1.07 (0.83-1.16); PROTIME(PATIENT) 14.1 SEC (12.0-15.0)
[2017-09-28 08:15] LABS: ALANINE AMINOTRANSFERASE 42 IU/L (21-72); ALBUMIN 3.6 g/dL (3.5-5.0); ALKALINE PHOSPHATASE 49 IU/L (38-126); ANION GAP 13 mEq/L (8-16); ASPARTATE AMINOTRANSFERASE 21 IU/L (17-59); BILIRUBIN,TOTAL 0.4 mg/dL (0.1-1.4); BILIRUBIN-CONJUGATED 0.2 mg/dL (0.0-0.5); BILIRUBIN-UNCONJUGATED 0.2 mg/dL (0.0-1.1); CALCIUM 8.8 mg/dL (8.5-10.4); CARBON DIOXIDE 19 mEq/l (22-31); CHLORIDE 104 mEq/L (97-110); CREATININE 0.9 mg/dL (0.7-1.3); GLOMERULAR FILTRATION RATE > 60; GLUCOSE 135 mg/dL (70-100); POTASSIUM 3.8 mEq/L (3.5-5.2); SODIUM 136 mEq/L (134-144); TOTAL PROTEIN 5.6 g/dL (6.3-8.2)
--- NOTE | 2017-09-28 08:26 | CPEKG ---
Heart Rate: 119 RR Interval: 504 P-R Interval: 164 QRSD Interval: 70 QT Interval: 312 QTC Interval: 439 P [place]: 47 QRS [place]: -9 T Wave [place]: 24 EKG Severity - OTHERWISE NORMAL ECG - EKG Impression: SINUS TACHYCARDIA Electronically Signed By: Iman Patel 28-Sep-2017 15:22:03
[2017-09-28] MEDS ORDERED: NS 500 ML IV ONE (08:29)
[2017-09-28] MEDS: OCTREOTIDE ACETATE 500 MCG in NS 50 ML IV SCH ×2 (08:42→11:30)
[2017-09-28] MEDS ORDERED: ONDANSETRON 4 MG/2 ML VIAL IVP PRN ×2 (09:08→16:04)
[2017-09-28] MEDS ORDERED: ACETAMINOPHEN 325 MG TAB PO PRN (09:08)
[2017-09-28] MEDS ORDERED: ONDANSETRON DISINTEGRATING 4 MG TAB PO PRN (09:08)
[2017-09-28] MEDS ORDERED: ALBUTEROL 60 PUFFS/8 GM MDI IH PRN (10:54)
[2017-09-28] MEDS ORDERED: NS 1,000 ML IV SCH (11:00)
[2017-09-28] MEDS ORDERED: LR 1,000 ML IV SCH (11:30)
--- NOTE | 2017-09-28 11:43 | GHP ---
[f rep st] HISTORY AND PHYSICAL DATE OF ADMISSION: 09/28/2017 CHIEF COMPLAINT: Melena. HISTORY OF PRESENT ILLNESS: A 57-year-old male with history of duodenal ulcer in 2008, hypertension, hyperlipidemia, who presents with melena for several days. He initially felt off on Sunday and had increased abdominal bloating. The next day he developed black stools. They were formed at first, but then he had 4 episodes of diarrhea today. At times, when he stands up he feels fuzzy in his head. He will have intermittent nausea. Denies chest pain or shortness of breath. Takes a baby aspirin. No NSAIDs since prior ulcer. 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 REVIEW OF SYSTEMS: I completed a 10-point review of systems, negative except as noted in HPI. 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 PAST SURGICAL HISTORY: Back steroid injection x2. A knee scope, a Lane fundoplication, had steroid injections to both knees 2 weeks ago. FAMILY HISTORY: Father with liver cancer, 4-vessel CABG. Mother with hypertension, pacemaker, and atrial fibrillation. Maternal uncle with colon cancer. SOCIAL HISTORY: Lives in [place] with his . 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 Drinks 10 beers a week. Uses a vaporizer pen. No illicits. ALLERGIES: No known drug allergies. HOME MEDICATIONS: Norvasc 5 mg daily, metoprolol 100 mg daily, aspirin 81 mg daily, Crestor 20 mg daily, albuterol 1-2 puffs p.r.n., Tylenol as needed. PHYSICAL EXAMINATION: VITAL SIGNS: Temperature 37, blood pressure 116/78, heart rate 109-120, respirations 16, 95% on room air. GENERAL: Well-appearing male sitting up in bed, no acute distress. HEENT: PERRLA. EOMI. Conjunctival pallor. CV: Tachy but regular. No murmurs, gallops, or rubs. Trace lower extremity edema. LUNGS: Clear. No crackles or wheezing. ABDOMEN : Distended but soft. No tenderness to palpation. Positive bowel sounds. : No Torres. MUSCULOSKELETAL: 5/5 upper and lower extremity strength. NEURO: 2 through 12 intact. PSYCH: Alert and oriented x3. LABS: WBCs 8, hemoglobin 9, hematocrit 27, platelets 184. Baseline H and H are 14 and 41. Coags: INR is 1, PT is 14. Sodium 136, potassium 3.8, chloride 104, BUN 45, carbon dioxide 19, creatinine 0.9, glucose 135, calcium 8.8, total bilirubin 0.4. Albumin is 3.6. Lipase is 27. ASSESSMENT AND PLAN: 1. Acute gastrointestinal bleed: Concerning for upper source given melena and history of duodenal ulcer. He is not using NSAIDs. He has had a significant drop in his H and H from his baseline. Will monitor in step-down. He is currently on a proton pump inhibitor drip, intravenous fluids with [address] Cramer with gastroenterology has been consulted for endoscopy. He has been typed and screened. 2. Tachycardia. Again, secondary to acute blood loss. Intravenous fluids. 3. Hypertension. Hold antihypertensive given acute gastrointestinal bleed. 4. Hyperlipidemia, on statin. 5. Diet. N.p.o. 6. Deep venous thrombosis prophylaxis. Sequential compression devices. 7. Disposition. Patient warrants observation and admission given acute gastrointestinal bleed warranting intravenous Protonix and gastroenterology consultation. Critical care time spent: 45 min reviewing records, labs and bedside evaluating patient. /[id number]/MODL MTDD
[2017-09-28] MEDS: ACETAMINOPHEN 325 MG TAB PO SCH ×2 (12:27→17:02)
--- NOTE | 2017-09-28 12:30 | ASMTCASEMG ---
Living Arrangements What is your living Answers: With Spouse arrangement? Who do you live with? Type Of Residence What kind of residence do Answers: House you live in? Discharge Plan Comments Coordination Status Comments Notes: Patient is a 57yo male who was admitted for acute gastrointestinal bleed, tachycardia, hypertension, and hyperlipidemia. 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 No therapies have been ordered at this time. Patient likely to d/c independently. CM available if d/c needs arise. Date Signed: 09/28/2017 12:30 PM Electronically Signed By:Megan Espinoza LCSW
[2017-09-28 12:48] LABS: HEMATOCRIT 24.1 % (40.0-51.0); HEMOGLOBIN 8.8 g/dL (13.7-17.5)
--- NOTE | 2017-09-28 14:03 | GCON ---
[f rep st] CONSULTATION DATE OF CONSULTATION: 09/28/2017 INDICATION FOR CONSULTATION: Posthemorrhagic anemia, elevated BUN and creatinine, consistent with upper GI bleed. HISTORY OF PRESENT ILLNESS: The patient is a pleasant, 57-year-old male who has a history of duodenal ulcer back in 2008, having both EGD and colonoscopy. He had been maintained on PPI for some period of time, but has not been taking it for a number of years. He did have a colonoscopy at that time, did show a right-sided hyperplastic lesion, and he was recommended to have a 5-year followup but that was not scheduled, despite multiple attempts by my office. We do recommend an outpatient colonoscopy. He will be getting that in early 2018, when he has new insurance. Currently he is presenting to the hospital with posthemorrhagic anemia and melena which has been going on for a few days, but worsened significantly at 3 a.m. this morning. He states he has had a few black stools over the last couple days, but at 3 a.m. this morning he had significant melanotic stools, had near-syncope with cold sweats and then chills afterwards, and then developed some epigastric right upper quadrant pain and nausea. His found him on the couch looking pale and dizzy, and brought him to the emergency room for evaluation. He does acknowledge taking a baby aspirin every day, did not take any other NSAIDs. He did not take any GI prophylaxis for a number of years. He is now admitted for presumed upper GI bleed and I am called to help evaluate and treat in that regard. PAST MEDICAL AND SURGICAL HISTORY: Peptic ulcer disease in 2008 related to NSAIDs, which he has avoided since that time. Hypertension, hyperlipidemia, and a right-sided hyperplastic colon polyp, which is more likely a sessile serrated adenoma under current nomenclature, hypercholesterolemia. PAST SURGICAL HISTORY: Sinus surgery. He had a hiatal hernia, a laparoscopic Lane fundoplication. He had his right shoulder scoped and his left knee scoped. MEDICATIONS: At home include Norvasc 5 mg daily, metoprolol 100 mg daily, aspirin 81 mg daily, Crestor 20 mg daily, albuterol 1-2 puffs p.r.n., Tylenol as needed. ALLERGIES: No known drug allergies. SOCIAL HISTORY: He smokes an e-cigarette. He drinks alcohol. FAMILY HISTORY: Father had liver metastases from unknown primary in his 70s. His maternal uncle had colon cancer in his 70s. REVIEW OF SYSTEMS: A complete review of systems is noted and negative other than noted in the HPI. Currently he has no chest pain, shortness of breath, diaphoresis, nausea, vomiting, or diarrhea/melena. He is sitting comfortably in his ICU bed. PHYSICAL EXAM: Well-developed, well-nourished male sitting in his ICU bed with no acute distress. Blood pressure 123/73, pulse is 106, respiratory rate is 12. The oxygen sat is 97% on room air. Temperature is 37. EYES: Anicteric. STEVE, EOMI. MOUTH: No lesions. Moist mucous membranes. Supple. BACK: No spine tenderness. No CVA tenderness. LUNGS: Clear to auscultation. CARDIAC: S1, S2. He is tachycardic at just over 100s. No murmurs, rubs or gallops. Bowel sounds are normal in pitch and frequency. Abdomen is soft with minimal right upper quadrant epigastric tenderness. No hepatosplenomegaly. EXTREMITIES : No cyanosis, clubbing, or edema. NEUROLOGIC: Cranial nerves intact. Nonfocal. SKIN: No stigmata of advanced liver disease. No rashes. LABORATORY DATA: WBC 8.53, hemoglobin 9.8, hematocrit 27.3, platelet count 184 , pro-time 14.1, INR 1.07, PTT 22.7. These are all from today, 09/28. Sodium 136, potassium 3.8, chloride 104, bicarb 19, BUN 45, creatinine 0.9, glucose 135 , calcium 8.8, bilirubin 0.4, AST 21, ALT 42, alkaline phosphatase 49, total protein 5.6, albumin 3.6, lipase 27. Stool occult blood is positive. Historical lab data: On December 07, 2016, hemoglobin is 14.7, hematocrit is 39.4. EGD and colonoscopy performed April 21, 2009. Posterior 2 cm duodenal ulcer present, deep with adherent clot, treated with BICAP therapy. Colonoscopy: 9 mm sessile polyp in the ascending colon removed with snare polypectomy. 5 mm sessile polyp in the sigmoid colon removed in cold biopsy. Left-sided diverticulosis and moderate internal hemorrhoids. The pathology of the polyp was read as hyperplastic; however, though, nomenclature has changed and those are likely are a sessile serrated adenoma and carry a cancer potential. A CLOtest obtained at that time was negative. I do not see any followup H pylori serology or stool tests. ASSESSMENT: 1. Presumed upper GI bleed with posthemorrhagic anemia, melena, elevated BUN/ creatinine ratio, near-syncope, consistent with recurrent ulcer disease, likely duodenal ulcer. 2. Hypertension. 3. Hyperlipidemia. 4. Long-term use of aspirin. 5. Family history of colon cancer in maternal uncle and maybe in his father, who had metastatic liver cancer. RECOMMENDATIONS: 1. Serial H and H, transfuse as appropriate per hospitalist. 2. Urgent EGD later this afternoon with anesthesia after patient has been resuscitated somewhat. 3. Hold aspirin for now. 4. If H pylori is negative on biopsy, recommend checking H pylori antibody. If H pylori antibody is positive, treat for eradication. If unable to check H pylori antibody, then following up with H pylori stool antigen or breath test when he is off PPI therapy for approximately 2 weeks would be appropriate. 5. Will likely need long-term GI prophylaxis, given his recurrent ulcerations with significant bleeding. If H pylori is positive and eradicated, H2 receptor antagonist may be reasonable prophylaxis. If H pylori is not noted, then long- term PPI therapy should be considered. 6. Treatment of his hypertension and hyperlipidemia as per hospitalists. 7. Historically, he requires anesthesia for these procedures. We will schedule this with anesthesia later this afternoon, to give him time for IV fluid resuscitation. Thank you for allowing me to participate in the patient's healthcare. Do not hesitate to call me with any questions. /[id number]/MODL MTDD
[2017-09-28] MEDS ORDERED: PROPOFOL 200 MG/20 ML VIAL ONE ×2 (15:45→15:52)
[2017-09-28] MEDS ORDERED: PROMETHAZINE HCL 25 MG/ML INJ IVP PRN (16:04)
[2017-09-28] MEDS ORDERED: NALOXONE HCL 0.4 MG/ML INJ IVP PRN (16:04)
[2017-09-28] MEDS ORDERED: fentaNYL 100 MCG/2 ML INJ IVP PRN (16:04)
--- NOTE | 2017-09-28 16:04 | PDANEPAE ---
ANE Past Medical History - Cardiovascular History Hx Hypertension: Yes Hx Arrhythmias: No Hx Chest Pain: No Hx Coronary Artery / Peripheral Vascular Disease: No Hx CHF / Valvular Disease: No Hx Palpitations: No - Pulmonary History Hx COPD: No Hx Asthma/Reactive Airway Disease: No Hx Recent Upper Respiratory Infection: No Hx Oxygen in Use at Home: No Hx Sleep Apnea: Yes Sleep Apnea Screening Result - Last Documented: Positive - Neurologic History Hx Cerebrovascular Accident: No Hx Seizures: No Hx Dementia: No - Endocrine History Hx Diabetes: No - Renal History Hx Renal Disorders: No - Liver History Hx Hepatic Disorders: No - Neurological & Psychiatric Hx Hx Neurological and Psychiatric Disorders: No - Cancer History Hx Cancer: No - Congenital Disorder History Hx Congenital Disorders: No - GI History Hx Gastrointestinal Disorders: No - Other Health History Other Health History: LT LEG DVT 2012 - Chronic Pain History Chronic Pain: Yes (RT SHLDR) - Surgical History Prior Surgeries: LT KNEE SCOPE. SINUS SURG. UMBILICAL HERNIA. SHOULDER SURGERY ANE Review of Systems Review of Systems: ANE Patient History - Allergies Allergies/Adverse Reactions: No Known Allergies Allergy (Verified 11/06/13 11:04) - Home Medications Home Medications: Acetaminophen [Tylenol 325mg (*)] 650 mg PO TID@09,12,16 12/07/16 [Last Taken 16:00] Albuterol [Proventil Inhaler HFA (*)] 1 - 2 puffs IH DAILY PRN 09/28/17 [Last Taken Unknown] Aspirin [Aspirin 81mg (*)] 81 mg PO DAILY 09/28/17 [Last Taken 09/27/17] Metoprolol Succinate Xr [Toprol Xl 100 mg (*)] 100 mg PO DAILY 09/28/17 [Last Taken 09/27/17] Rosuvastatin Calcium [Crestor 20mg (*)] 20 mg PO DAILY 09/28/17 [Last Taken 05/07] amLODIPine BESYLATE [Norvasc 5 mg (*)] 5 mg PO DAILY 09/28/17 [Last Taken ] - NPO status NPO Since - Liquids (Date): 09/27/17 NPO Since - Liquids (Time): 19:00 NPO Since - Solids (Date): 09/27/17 NPO Since - Solids (Time): 12:30 - Anes Hx Anes Hx: no prior problems - Smoking Hx Smoking Status: Former smoker ANE Labs/Vital Signs - Labs Result Diagrams: 09/28/17 12:30 09/28/17 07:45 - Vital Signs Blood Pressure: 106/73 Heart Rate: 109 Respiratory Rate: 16 O2 Sat (%): 97 Height: 185.42 cm Weight: 106.59 kg ANE Physical Exam - Airway Neck exam: FROM Mallampati Score: Class 2 Mouth exam: normal dental/mouth exam - Pulmonary Pulmonary: no respiratory distress, no rales or rhonchi, clear to auscultation - Cardiovascular Cardiovascular: no murmur, rub, or gallop, tachycardia - ASA Status ASA Status: II ANE Anesthesia Plan Anesthesia Plan: GA with mask
--- NOTE | 2017-09-28 16:21 | POSTANESTH ---
Post Anesthetic Evaluation Cardiovascular Status: Similar to Pre-Op Cond Respiratory Status: Normal, Stable, Similar to Pre-op Cond. Level of Consciousness/Mental Status: Can Participate in Eval, Alert and Oriented Pain Control: Adequate, Prn Tx Ordered Nausea/Vomiting Control: Adequate, Prn Tx Ordered Complications Possibly Related to Anesthesia: None Noted
--- NOTE | 2017-09-28 16:23 | GIREPORT ---
[facility] Surgical Services - Endoscopy Department Patient Name: Ronen Jorge Procedure Date: 09/28/2017 3:52 PM Patient Type: Inpatient Attending MD/ ER Physician: Sheela Calderon Procedure: Upper GI endoscopy Indications: Acute post hemorrhagic anemia, Melena Providers: Benigno Cramer MD Referring MD: Ronen uBrgess MD Medicines: Total IV Anesthesia (TIVA) Complications: No immediate complications. Estimated blood loss: Minimal. Description of Procedure: After obtaining informed consent, the endoscope was passed under direct vision. Throughout the procedure, the patient's blood pressure, pulse, and oxygen saturations were monitored continuously. The Endoscope was intro duced through the mouth, and advanced to the third part of duodenum. The uppe r GI endoscopy was accomplished without difficulty. The patient tolerated th e procedure well. Findings: The examined esophagus was normal. Scattered mild inflammation characterized by erythema, friability and granularity was found in the gastric body and in the gastric antrum. Biopsies were taken with a cold forceps for histology. Estimated blood loss was minimal. Evidence of a Lane fundoplication was found in the cardia. This was traversed. One non-bleeding superficial duodenal ulcer with no stigmata of bleedin g was found in the duodenal bulb. The lesion was 7 mm in largest dimension. Patchy mild inflammation characterized by congestion (edema) and erythe ma was found in the duodenal bulb and in the second portion of the duodenu m. The exam was otherwise without abnormality. Estimated Blood Loss: Estimated blood loss was minimal. Post Op Diagnosis: - Normal esophagus. - Gastritis. Biopsied. - A Lane fundoplication was found. - One non-bleeding duodenal ulcer with no stigmata of bleeding. - Duodenitis. - The examination was otherwise normal. Recommendation: - Await pathology results. - My office will call with the pathology result with 5-7 days. If you h ave not heard from my office by -14, do not assume the pathology is kirsty l, please call [phone] to get the pathology results. - If no h pylori noted, then check h pylori stool AG when off PPI for t wo weeks - He will be on PPI for at least 8 weeks - Give Protonix (pantoprazole): 8 mg/hr IV by continuous infusion for 1 day. Then change to PO BID for 4 weeks, then once daily for additional 4 wee ks = 8 weeks total. - If h pylori is not found, then must consider predatory animal exterminator prophylaxis wi th PPI if he is to stay on Aspirin. If h pylori is eradicated then H2RA ma ybe enough GI prophylaxis [facility]. - Clear liquid diet for 1 day. - Perform a colonoscopy at appointment to be scheduled. In 2018. he is few years overdue. - Return patient to [facility] for [facility] care. - Thank you for allowing me to help in your patient's care. Do not hesi khan to call with any questions. Attending Participation: I personally performed the entire procedure. Shoaib Pelaez M.D Benigno Cramer MD 09/28/2017 4:22:46 PM This report has been signed electronicallyMathew MD Shoaib Number of Addenda: 0 Note Initiated On: 09/28/2017 3:52 PM [email or web address]
--- NOTE | 2017-09-28 16:31 | POSTOPPROG ---
Post Op Note Date of Operation: 09/28/17 Surgeon: Franco Cramer Anesthesiologist: Werner De Jesus MD Anesthesia: Other (Specify) (IV genreal) Pre-op Diagnosis: melena acute post hemorrhagic anemia Post-op Diagnosis: DU clean based, no active bleed, gastritis Indication: melena, acute post hemorrhagic anemia Procedure: egd and bx Findings: nml esop, intact fundoplication, mild gastritis, clean based DU Inf/Abcess present in the surg proc area at time of surgery?: No EBL: Minimal (few ml from bx) Total fluids administered: 300 ml LR Complications: none immediate
[2017-09-28] MEDS: PANTOPRAZOLE SODIUM 80 MG in NS 100 ML IV SCH (17:26)
[2017-09-28 20:22] LABS: HEMATOCRIT 21.6 % (40.0-51.0); HEMOGLOBIN 7.4 g/dL (13.7-17.5)
[2017-09-29 04:58] VITALS: TEMP 209.5
[2017-09-29 05:07] VITALS: BP 104/57; PULSE 99; RESP 18; O2SAT 100
[2017-09-29] MEDS: PANTOPRAZOLE SODIUM 80 MG in NS 100 ML IV SCH (05:13)
[2017-09-29 05:48] LABS: ANION GAP 7 mEq/L (8-16); CALCIUM 8.3 mg/dL (8.5-10.4); CARBON DIOXIDE 22 mEq/l (22-31); CHLORIDE 110 mEq/L (97-110); CREATININE 0.8 mg/dL (0.7-1.3); GLOMERULAR FILTRATION RATE > 60; GLUCOSE 114 mg/dL (70-100); POTASSIUM 3.9 mEq/L (3.5-5.2); SODIUM 139 mEq/L (134-144)
[2017-09-29 06:00] LABS: HEMOGLOBIN 7.3 g/dL (13.7-17.5); MEAN CELL HEMOGLOBIN 32.2 pg (27.9-34.1); MEAN CELL HEMOGLOBIN CONCENTR. 34.8 g/dL (32.4-36.7); MEAN CELL VOLUME 92.5 fL (81.5-99.8); RED BLOOD CELL COUNT 2.27 10^6/uL (4.40-6.38); RED CELL DISTRIBUTION WIDTH 13.7 % (11.5-15.2)
[2017-09-29] MEDS: ACETAMINOPHEN 325 MG TAB PO SCH ×2 (07:23→07:26)
[2017-09-29] MEDS ORDERED: PANTOPRAZOLE SODIUM 40 MG TAB PO SCH (09:00)
[2017-09-29 10:44] LABS: HEMATOCRIT 22.5 % (40.0-51.0); HEMOGLOBIN 7.7 g/dL (13.7-17.5)
--- NOTE | 2017-09-29 14:08 | GDS ---
[f rep st] DISCHARGE SUMMARY DISCHARGE DIAGNOSES: 1. Acute blood loss anemia. 2. Acute gastrointestinal bleed. 3. Tachycardia. 4. Hypertension. 5. History of a Lane fundoplication. 6. Nonbleeding duodenal ulcer. 7. Duodenitis. HISTORY OF PRESENT ILLNESS: A pleasant 57-year-old male with history of duodenal ulcer in 2008, hype rtension, hyperlipidemia, presents with melena for several days. He felt off on Sunday and had incre ased abdominal bloating and discomfort. The next day he developed black stools that were formed at irst, but then had 4 episodes of diarrhea the day of admission. At times when he stood up he felt fu zzy in the head. He did have intermittent nausea. Denies chest pain, shortness of breath. Takes a baby aspirin, but no NSAIDs. HOSPITAL COURSE BY PROBLEM: 1. Acute GI bleed/blood-loss anemia. The patient underwent EGD that demonstrated nonbleeding duoden al ulcer and duodenitis. Biopsies are pending for pathology and H pylori. If H pylori is negative w ill check a stool antigen when off his proton pump inhibitor for 2 weeks. Recommend Protonix for 8 w eeks. He will have a colonoscopy scheduled in 2018. He will follow up with his PCP, Dr. Burgess, on Sunday for a repeat CBC. I have provided a prescription for this. His most recent hemoglobin and he matocrit were 7.7 and 22. I did offer a blood transfusion; however, he declined and will follow up or this laboratory check on Sunday. Recommend iron supplementation. 2. Hypotension: Secondary to acute gastrointestinal bleed. I recommend that he hold his antihypert ensives until Sunday. 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 3. Hyperlipidemia. Statin. 4. Tachycardia. This is resolved. It was secondary to acute blood loss and was improved with fluid. DISPOSITION: Patient is stable for discharge home. NEW MEDICATIONS: 1. Protonix 40 mg b.i.d. 2. Ferrous sulfate b.i.d. over the counter. FOLLOWUP: 1. Dr. Franco Cramer, with GI. 2. Ronen Burgess M.D., on Sunday for a CBC to ensure not warranting transfusion. LABS PENDING: EGD biopsies, H pylori. PHYSICAL EXAMINATION: VITAL SIGNS: Temperature 36.5, blood pressure 104/57 to 117/68, heart rate 90 s, respiration 18, 100% on room air. GENERAL: Well-appearing, appears more bright. Has more color in his face. HEENT: PERRLA. EOMI. Oropharynx clear. CARDIOVASCULAR: Regular rate and rhythm. N o murmurs, gallops, rubs. LUNGS: Clear to auscultation bilaterally. ABDOMEN: Still mildly distend ed but soft. No tenderness. Positive bowel sounds GENITOURINARY: No Torres. MUSCULOSKELETAL: 5/5 u pper and lower extremity strength. NEUROLOGIC: 2 through 12 intact. PSYCH: Alert and oriented x3. /[id number]/MODL
== END 2017-09-29 11:59 | disposition home or self-care (01) ==
LOC: F2N 10:32
PROVIDERS: ADMIT Internal Medicine; ATTEND Internal Medicine
PROC: 0DB68ZX Excision of Stomach, Via Natural or Artificial Opening Endoscopic, Diagnostic (ICD-10-PCS; principal; 2017-09-28 13:30)
DX: K92.2 Gastrointestinal hemorrhage, unspecified (principal); D62 Acute posthemorrhagic anemia; R00.0 Tachycardia, unspecified; I10 Essential (primary) hypertension; K26.9 Duodenal ulcer, unspecified as acute or chronic, without hemorrhage or perforation; K29.80 Duodenitis without bleeding; F17.299 Nicotine dependence, other tobacco product, with unspecified nicotine-induced disorders
CPT/HCPCS: 43239; 93005; 96365; 96368; 96375; 99285; G0378; J2354; J2405; J2704

== ENCOUNTER → 2017-10-30 | Outpatient (CLI) | payer OTHER | LOC: FIMAGING 14:51 | PROVIDERS: ATTEND Internal Medicine | DX: I80.02 Phlebitis and thrombophlebitis of superficial vessels of left lower extremity (principal); R93.6 Abnormal findings on diagnostic imaging of limbs ==

== ENCOUNTER → 2017-11-06 | Outpatient (CLI) | payer OTHER | LOC: CIMAGING 14:48 | PROVIDERS: ATTEND Internal Medicine | DX: R93.6 Abnormal findings on diagnostic imaging of limbs (principal) | CPT/HCPCS: 73551-PO ==

== ENCOUNTER → 2017-11-27 | Outpatient (CLI) | payer OTHER ==
[~2017-11-27] MED LIST changes: +GADOBUTROL 10 ML VIAL IVP ONE; -IOPAMIDOL (ISOVUE-300) 100 ML BTL IV ONE
== END ==
LOC: FIMAGING 06:54
PROVIDERS: ATTEND Internal Medicine
DX: R22.42 Localized swelling, mass and lump, left lower limb (principal)
CPT/HCPCS: A9585

== ENCOUNTER → 2017-12-03 | Outpatient (CLI) | payer OTHER ==
[~2017-12-03] MED LIST changes: -GADOBUTROL 10 ML VIAL IVP ONE; +LIDOCAINE 1% 300 MG/30 ML SDV ONE
== END ==
LOC: FIMAGING 08:03
PROVIDERS: ATTEND Orthopaedic Surgery
PROC: 0M9P3ZX Drainage of Left Knee Bursa and Ligament, Percutaneous Approach, Diagnostic (ICD-10-PCS; principal; 2017-12-03)
DX: R22.42 Localized swelling, mass and lump, left lower limb (principal)

== ENCOUNTER → 2018-05-03 | Outpatient (CLI) | payer OTHER | LOC: CIMAGING 13:05 | PROVIDERS: ATTEND Internal Medicine Cardiovascular Disease | DX: R91.1 Solitary pulmonary nodule (principal) | CPT/HCPCS: 71250-PO ==